=== PATIENT | female | born 1960 | race Caucasian/White ===

== ENCOUNTER 2021-03-18 15:51 | Emergency (ER) | payer MEDICARE, MEDICAID, SELFPAY ==
[2021-03-18 15:54] VITALS: BP 154/75; PULSE 110; RESP 20; TEMP 37.6; O2SAT 96
--- NOTE | 2021-03-18 17:50 | ED.GENADULT ---
HPI - General Adult General Chief complaint: Unspecified Stated complaint: SORE THROAT, CANT SWALLOW Time Seen by Provider: 03/18/21 16:33 History of Present Illness HPI narrative: Patient is a 6-year-old female who presents to the ER with sore throat. Ongoing for last 24 hours. Worsened after eating hot wings last night. She is physically capable of swallowing but it causes her discomfort. No fevers or chills or sweats. No known sick contacts. No chest pain or chest pressure. Related Data Allergies Allergy/AdvReac Type Severity Reaction Status Date / Time No Known Allergies Allergy Mild Verified 03/18/21 15:52 Review of Systems Review of Systems: All systems reviewed & are unremarkable except as noted in HPI and below Constitutional: Constitutional: Denies chills, Denies fever(s) and Denies night sweats ENT: Denies lip swelling, Denies nasal congestion, Reports sore throat and Denies tongue swelling Respiratory: Respiratory: Denies chest congestion, Denies cough and Denies dyspnea Gastrointestinal: Gastrointestinal: Denies abdominal pain, Denies diarrhea, Denies nausea and Denies vomiting PMFSH Past Medical History Medical History (Updated 03/18/21 @ 18:28 by Dontae Serra MD) Cirrhosis Colon cancer Hepatitis C Treated Surgical History Surgical History (Updated 03/18/21 @ 18:19 by Dontae Serra MD) History of colon resection Hx of tonsillectomy Social History Social History Gender identity (if verbalized by the patient): Female Exam Narrative: GENERAL: Well-appearing, well-nourished, and in no acute distress. HEAD: Normocephalic, atraumatic. ENT: Mucous membranes moist. Swelling to the left tonsil with scant exudate. Right tonsil is normal. Uvula midline and nonedematous. No edema of the tongue or lips. NECK: Tender anterior cervical chain lymphadenopathy. CHEST: Clear to auscultation. No respiratory distress. HEART: Regular rate and rhythm. Normal peripheral pulses. ABDOMEN: Soft, nontender, nondistended. EXTREMITIES: Normal range of motion. No edema. SKIN: Warm, dry, no rash. NEURO: Alert and oriented x3. Course Course Emergency Course: Patient informed results. Pain slightly improved with viscous lidocaine. It certainly appears patient's tonsil has grown back. Discharge home. Vital Signs Vital signs: Vital Signs Temperature 99.6 F 03/18/21 15:54 Pulse Rate 110 H 03/18/21 15:54 Respiratory Rate 20 03/18/21 15:54 Blood Pressure 154/75 H 03/18/21 15:54 Pulse Oximetry 96 03/18/21 15:54 Temperature 99.6 F 03/18/21 15:54 Pulse Rate 110 H 03/18/21 15:54 Respiratory Rate 20 03/18/21 15:54 Blood Pressure 154/75 H 03/18/21 15:54 Pulse Oximetry 96 03/18/21 15:54 Medical Decision Making Vital Signs Vital Signs: Vital Signs Temperature 99.6 F 03/18/21 15:54 Pulse Rate 110 H 03/18/21 15:54 Respiratory Rate 20 03/18/21 15:54 Blood Pressure 154/75 H 03/18/21 15:54 Pulse Oximetry 96 03/18/21 15:54 Temperature 99.6 F 03/18/21 15:54 Pulse Rate 110 H 03/18/21 15:54 Respiratory Rate 03/18/21 15:54 Blood Pressure 154/75 H 03/18/21 15:54 Pulse Oximetry 96 03/18/21 15:54 Lab Data Labs: Strep Screen Presumptive Negative *(Reference Range: Negative)* Discharge Plan Discharge Clinical Impression: Pharyngitis Patient Disposition: Home, Self-Care Condition: Stable Instructions: Antibiotic Form, Pharyngitis (ED) Additional Instructions: Return the ER if you cannot breathe, you cannot swallow, you have chest pain or shortness of breath, you have additional concerns. Prescriptions: New lidocaine HCl [Lidocaine Viscous] 2 % solution 1 applic mucous membrane QID PRN (Reason: pain) Qty: 100 RF: 0 Cepacol Sore Throat (nolan-men) 15-2.6 mg lozenge 1 estee mucous membrane Q2-4H PRN (Reason: sore throat) Qty: 16 RF: 0 Follow-up/Ref
[2021-03-18] MEDS: LIDOCAINE HCL 2% VISC SOLN 15 ML UDC PO (17:57)
== END 2021-03-18 18:43 | disposition home or self-care (01) ==
PROVIDERS: Emergency Provider Emergency Medicine; PCP Internal Medicine
DX: J02.9 Acute pharyngitis, unspecified (principal); K74.60 Unspecified cirrhosis of liver; Z85.038 Personal history of other malignant neoplasm of large intestine; Z86.19 Personal history of other infectious and parasitic diseases
CPT/HCPCS: 87880; 99283